=== PATIENT | female | born 1995 | race Caucasian/White ===

== ENCOUNTER 2017-07-30 18:47 | Emergency (ER) | payer SELFPAY ==
--- NOTE | 2017-07-30 19:01 | NUR ---
CALLED IN [facility]- NO ANSWER
--- NOTE | 2017-07-30 19:16 | NUR ---
CALLED IN [facility]- NO ANSWER
--- NOTE | 2017-07-30 19:35 | NUR ---
INFORMED BY ADMITTING "PT LEFT"
== END 2017-07-30 19:36 | disposition left against medical advice (07) ==
LOC: ER 18:48
DX: Z53.21 Procedure and treatment not carried out due to patient leaving prior to being seen by health care provider (principal)

== ENCOUNTER 2021-04-29 22:13 | Emergency (ER) | payer BC, OTHER ==
[~2021-04-29] VITALS: Ht 167.6 cm; Wt 71.7 kg
[2021-04-29 23:07] VITALS: BP 129/68
--- NOTE | 2021-04-29 23:10 | NUR ---
BIBSELF C/O PAIN, BURNING AND NOTED BLOOD UPON URINATION. PATIENT AAO X 4, RESPIRATIONS UNLABORED. PATIENT STATES SYMPTOMS BEGAN AROUND 1800. PT ATTACHED TO MONITOR AND PULSE OX. PT KEPT COMFORTABLE. WILL CONT TO MONITOR
[2021-04-29] MEDS ORDERED: PHEN-894 PO (23:51)
[2021-04-29] MEDS ORDERED: NITR100C6 PO (23:51)
--- NOTE | 2021-04-29 23:54 | NUR ---
URINE SAMPLE COLLECTED AND SENT TO LAB
--- NOTE | 2021-04-30 00:04 | NUR ---
Patient discharged to home in stable condition. Written and verbal after care instructions given. Patient verbalizes understanding of instruction. Patient ambulatory with a steady gait
[2021-04-30 01:10] LABS: BILIRUBIN,URINE NEGATIVE (NEGATIVE); COLOR,URINE YELLOW (YELLOW); LEUKOCYTE ESTERASE ,URINE SMALL (NEGATIVE); NITRITE, URINE POSITIVE (NEGATIVE); PROTEIN,URINE >=300 mg/dl (NEGATIVE); UGLUCOSE NEGATIVE (NEGATIVE); UROBILINOGEN,URINE 0.2 EU/dL (0.2)
[2021-04-30 01:49] LABS: BACTERIA,URINE Few /HPF (None Seen); RBC,URINE 81-100 /HPF (0-2); SQUAMOUS EPITHELIAL CELL,UR Few /HPF (None Seen); WBC,URINE 21-50 /HPF (0-3)
== END 2021-04-30 00:05 | disposition home or self-care (01) ==
LOC: ER 23:30
DX: N39.0 Urinary tract infection, site not specified (principal)
CPT/HCPCS: 81001; 87086-TC